=== PATIENT | female | born 1990 | race Caucasian/White ===

== ENCOUNTER → 2019-01-08 15:31 | Outpatient (CLI) | payer OTHER, MEDICAID, SELFPAY ==
[2019-01-08 16:13] LABS: Add Manual Diff / Slide Review NO; Basophils Absolute Auto 0 /uL (0-100); Basophils Percent Auto 0.4 % (0-2); Eosinophils Absolute Auto 300 /uL (0-450); Hematocrit 38.6 % (36-46); Hemoglobin 13.2 g/dL (12.0-16.0); Lymphocytes Absolute Auto 2100 /uL (1100-4500); Lymphocytes Percent Auto 26.3 % (25-40); Mean Corpuscular HGB Conc 34.3 % (30-36); Mean Corpuscular Volume 84.7 fL (80-100); Monocytes Absolute Auto 600 /uL (0-900); Monocytes Percent Auto 7.5 % (3-14); Neutrophils Absolute Auto 4800 /uL (1500-7000); Neutrophils Percent Auto 61.8 % (50-75); Platelet Count 228 X10^3/uL (150-400); Red Blood Cell Count 4.56 X10^6/uL (4.0-5.2); Red Cell Distribution Width 13.6 % (11.6-14.8); White Blood Cell Count 7.8 X10^3/uL (4.5-11.0)
[2019-01-08 16:16] LABS: Appearance Urine UA CLEAR; Bilirubin Urine UA NEGATIVE (NEGATIVE); Color Urine UA YELLOW; Glucose Urine UA NEGATIVE (Negative); Ketones Urine UA NEGATIVE (NEGATIVE); Leukocyte Esterase Urine UA NEGATIVE (NEGATIVE); Nitrite Urine UA NEGATIVE (Negative); Occult Blood Urine UA NEGATIVE (Negative); Protein Urine UA NEGATIVE (Negative); Urobilinogen Urine UA 0.2 E.U./dL (0.2); pH Urine UA 5.5 (4.5-8.0)
[2019-01-08 17:30] LABS: Hepatitis B Surface Antigen NEGATIVE s/c (NEGATIVE); Rubella Antibody IgG 3.9 IU/mL (>15)
[2019-01-08 18:04] LABS: HIV 1 & 2 Ab/Ag 4th Gen Combo NEGATIVE (NEGATIVE); Hep C Virus Ab w/Reflex Quant NEGATIVE s/c (NEGATIVE)
[2019-01-10 22:07] LABS: RPR Screen Nonreactive (Nonreactive)
== END ==
PROVIDERS: PCP Specialist; Visit Provider Specialist
DX: Z34.91 Encounter for supervision of normal pregnancy, unspecified, first trimester (principal)
CPT/HCPCS: 36415; 80055; 81003; 86787; 86803; 86850; 86900; 86901; 87086; 87389

== ENCOUNTER → 2019-02-21 14:49 | Outpatient (CLI) | payer OTHER, MEDICAID, SELFPAY ==
[2019-03-03 10:26] LABS: AFP, Serum 41.1 ng/mL; Calc Gestational Age 17.4; Cigarette Smoker NO; Collection Date 101819; Donated Egg NO; Donor Egg Age NOT GIVEN; Estriol, Free 1.05 ng/mL; Inhibin A, Dimeric 371 pg/mL; Maternal Ethnicity white; Maternal Weight 160 lbs; Number of Fetuses 1; Previous Pregnancy Down Syndro NO; hCG, MoM 1.13; hCG, Serum 28.3 IU/mL
== END ==
PROVIDERS: PCP Specialist; Visit Provider Specialist
DX: Z34.82 Encounter for supervision of other normal pregnancy, second trimester (principal); Z3A.17 17 weeks gestation of pregnancy
CPT/HCPCS: 36415; 82105; 82677; 84702; 86336

== ENCOUNTER → 2019-03-14 07:40 | Outpatient (CLI) | payer OTHER, MEDICAID, SELFPAY ==
--- NOTE | 2019-03-14 07:41 | DI.US.S_ITS ---
PROCEDURE: US OB >= 14 WEEKS FETUS INDICATIONS: 20 WEEK ANATOMY SCAN OUTSIDE/PRIOR DATING DATA: Last menstrual period (LMP): 10/25/18. LMP-based estimated date of delivery (MAGDA): 08/01/19. First dating scan (date and location): 01/20/19. Estimated date of delivery (MAGDA) from first dating scan: 07/29/19. TECHNIQUE: Real-time scanning was performed of the fetus, with image documentation and biometric measurements. Endovaginal scanning: No COMPARISON: [facility], , OB >= 14 WEEKS FETUS, 02/21/2019, 14:40. FINDINGS: General: A single living intrauterine gestation is present. Presentation: Variable. Placenta: Placental position is anterior, without previa. Amniotic fluid index: 10.0 cm, normal range is 5-24 cm. heart rate: 144 beats per minute. Maternal cervical canal: 4.1 cm long. Normal lower limit is 2.5 cm. biometrics: Biparietal diameter: 19 weeks Head circumference: 19 weeks 6 days Abdominal circumference: 19 weeks 5 days Femur length: 19 weeks 3 days Estimated gestational age from initial scan: 20 weeks 3 days Composite gestational age from present scan: 19 weeks 5 days Estimated weight and percentile: 302 g; 11 percentile Measurement variability for biometric dating: +/- 7 days from 14 weeks to 15 weeks 6 days gestation, +/- 10 days from 16 weeks to 21 weeks 6 days gestation, +/- 2 weeks from 22 weeks to 27 weeks 6 days gestation, +/- 3 weeks for 28 weeks gestation or later. weight reference: 4500 g or EFW >90/95% is considered macrosomia or large for gestational age. EFW <10% is small for gestational age. EFW 5% or less is considered intra-uterine growth restriction. Anatomic survey: Neuro: Ventricles are non-dilated at less than 10 mm. Cisterna magna is normal at 3-11 mm. Cerebellum is normal in size and morphology. Nuchal skin fold: Normal at less than 6 mm between 14-21 weeks gestational age. Face: Suboptimally visualized. Spine: No evidence for spina bifida. Heart: 4-chambered heart is present, with normal ventricular outflow tracts. Diaphragm: Diaphragm is intact. Stomach: Left-sided stomach is present. Kidneys: No hydronephrosis. Normal is less than 5 mm in 2nd trimester, less than 7 mm in 3rd trimester. Cord: Suboptimally visualized. Bladder: Normal in size. Extremities: All 4 extremities identified. IMPRESSION: 1. Single living IUP redemonstrated and interval growth is lower limits of normal. 2. face and cord insertion site not well-visualized; otherwise normal anatomy. Followup recommended. Dictated by: Ismael Ceja [facility] Interpreted: Geovani Patricia MD on 03/14/2019 at 10:23 Approved by: Geovani Patricia M.D. on 03/14/2019 at 12:40
== END ==
PROVIDERS: PCP Specialist; Visit Provider Specialist
DX: Z34.82 Encounter for supervision of other normal pregnancy, second trimester (principal); Z3A.19 19 weeks gestation of pregnancy
CPT/HCPCS: 76811

== ENCOUNTER → 2019-04-17 09:10 | Outpatient (CLI) | payer OTHER, SELFPAY ==
[2019-04-17 10:56] LABS: Hematocrit 35.2 % (36-46); Hemoglobin 12.1 g/dL (12.0-16.0)
[2019-04-17 11:29] LABS: GTT (PREG) 1 Hour PP 50gm Dose 115 mg/dL (76-139)
== END ==
PROVIDERS: PCP Specialist; Visit Provider Specialist
DX: Z34.82 Encounter for supervision of other normal pregnancy, second trimester (principal)
CPT/HCPCS: 36415; 82950; 85014; 85018

== ENCOUNTER → 2019-07-09 08:53 | Outpatient (CLI) | payer OTHER, SELFPAY ==
[2019-07-10 14:26] LABS: Strep Grp B PCR POS for Grp B Strep
== END ==
PROVIDERS: PCP Specialist; Visit Provider Specialist
DX: Z34.83 Encounter for supervision of other normal pregnancy, third trimester (principal); Z3A.37 37 weeks gestation of pregnancy
CPT/HCPCS: 87653

== ENCOUNTER 2019-07-31 08:27 | Outpatient (CLI) | payer OTHER, SELFPAY ==
--- NOTE | 2019-07-31 09:14 | PM.OBTRLD ---
Visit Information Visit Information Date of evaluation: 07/31/19 Primary OB Provider: Chasity Dodge Reason for Evaluation: Yes non-stress test non-stress test reason: other (Postdates) [facility] Medical History (Updated 07/31/19 @ 09:15 by Chasity Dodge MD) Family history of breast cancer in mother (Acute) Social History Smoking Status: Former smoker Evaluation Evaluation Baseline heart rate: 135 Variability: Moderate (11-25) monitor accelerations: Present monitor decelerations: Absent Contraction Frequency (minutes): 0 Category of Tracing: I Diagnosis, Plan/Disposition Final Diagnosis (1) Post-term , 40-42 weeks of gestation: Current Visit: Yes Status: Acute Plan/Disposition Plan: Reactive nonstress test. SHAINA in the office was 7 with good movement and tone. Consent form for induction sign to return 08/03 in the evening for Prostin followed by Pitocin induction OB Disposition: home
== END 2019-07-31 09:25 | disposition home or self-care (01) ==
LOC: LABOR 08:52 → OB 12:16
PROVIDERS: PCP Specialist; Referring Provider Specialist; Visit Provider Specialist
DX: O48.0 Post-term pregnancy (principal); Z3A.40 40 weeks gestation of pregnancy
CPT/HCPCS: 59025; G0378; G0379

== ENCOUNTER 2019-08-04 18:19 | Inpatient (IN) | payer OTHER, SELFPAY ==
[2019-08-04 18:38] VITALS: BP 109/71
[2019-08-04] MEDS: miSOPROStoL 25 MCG TABLET VAG ×2 (18:51→23:09)
[2019-08-04 21:20] LABS: Add Manual Diff / Slide Review NO; Basophils Absolute Auto 0 /uL (0-100); Basophils Percent Auto 0.4 % (0-2); Eosinophils Absolute Auto 300 /uL (0-450); Eosinophils Percent Auto 3.2 % (2-4); Hematocrit 32.8 % (36-46); Lymphocytes Absolute Auto 2700 /uL (1100-4500); Lymphocytes Percent Auto 28.7 % (25-40); Mean Corpuscular HGB Conc 33.4 % (30-36); Mean Corpuscular Hemoglobin 29.2 PG (26-34); Mean Corpuscular Volume 87.2 fL (80-100); Monocytes Absolute Auto 700 /uL (0-900); Monocytes Percent Auto 7.5 % (3-14); Neutrophils Absolute Auto 5700 /uL (1500-7000); Neutrophils Percent Auto 60.2 % (50-75); Platelet Count 248 X10^3/uL (150-400); Red Blood Cell Count 3.76 X10^6/uL (4.0-5.2); Red Cell Distribution Width 13.5 % (11.6-14.8); White Blood Cell Count 9.5 X10^3/uL (4.5-11.0)
[2019-08-05] MEDS: miSOPROStoL 25 MCG TABLET VAG (03:43)
[2019-08-05] MEDS: LACTATED RINGERS 1,000 ML 100 ML IV ×3 (08:42→17:56)
--- NOTE | 2019-08-05 08:43 | P.HPOB_ITS ---
OB HPI Date/Time Date of admission: 08/04/19 Date Patient Seen: 08/05/19 Time Patient Seen: 08:44 History of Present Condition Chief complaint: : 2 Para: 0 Estimated Date of Delivery: 07/29/19 Estimated Gestational Age (weeks): 41 Narrative: Alta Keen is a 29 year old female admitted for Induction for postdates History of Present care: good care, initiated at week # (12), number of visits (13) and pounds weight gain (38) Dating criteria: LMP confirmed by 1st trimester US Ultrasounds: normal mid trimester US Obstetrical complications: none Medical complications: none Preadmission Labs Blood type: O (+) positive -: Antibody screen: negative, GBS status: positive, HBsAG: negative, HIV: negative and RPR/VDLR: negative -: Rubella: not immune and Varicella: immune HCAB: negative Quad screen: Normal 1 hr GTT: 115 Evaluation Evaluation Baseline heart rate: 130 Variability: Moderate (11-25) monitor accelerations: Present monitor decelerations: Absent Uterine Contraction Intensity: Mild Category of Tracing: I Cervical dilation (cm): 1 Cervical effacement (%): 75 station: -1 Laboratory results: Laboratory Tests 08/04/19 08/04/19 20:50 20:50 WBC 9.5 RBC 3.76 L Hgb 11.0 L Hct 32.8 L MCV 87.2 MCH 29.2 MCHC 33.4 RDW 13.5 Plt Count 248 Neut % (Auto) 60.2 Lymph % (Auto) 28.7 [place] % (Auto) 7.5 Eos % (Auto) 3.2 Baso % (Auto) 0.4 Neut # (Auto) 5700 Lymph # (Auto) 2700 [place] # (Auto) 700 Eos # (Auto) 300 Baso # (Auto) 0 Blood Type O Positive Antibody Screen Negative [facility] Medical History (Updated 07/31/19 @ 09:15 by Chasity Dodge MD) Family history of breast cancer in mother (Acute) Social History Smoking Status: Former smoker Meds Home Medications and Allergies Home Medications Medication Instructions Recorded Confirmed Type prenat.vits,skip,bwc-rdoj-ikdkj 1 tab PO DAILY 01/08/19 08/04/19 History Double Electric breast Pump and #1 each 06/19/19 08/04/19 Rx Supplies Allergies Allergy/AdvReac Type Severity Reaction Status Date / Time acetaminophen [From Vicodin] Allergy Severe Anaphylaxis Verified 01/08/19 15:38 hydrocodone [From Vicodin] Allergy Severe Anaphylaxis Verified 01/08/19 15:38 Review of Systems Review of Systems Narrative: Patient denies headaches, scotomata, epigastric pain. Good movement. No leakage of fluid. ROS: Yes All systems reviewed with the patient and are negative except as otherwise documented Exam Vital Signs (past 8 hours): Blood pressure 94/51, pulse 75, temperature 37.2? Narrative Exam Narrative: HEENT exam within normal limits. Lungs are clear to auscultation and percussion. Heart is regular rate and rhythm no S3-S4 or murmurs. Abdomen is gravid. Fetus is vertex. Extremities without edema and nontender. Objective Labs Result Diagrams: 08/04/19 20:50 Labs: Laboratory Results - last 24 hr 08/04/19 08/04/19 20:50 20:50 WBC 9.5 RBC 3.76 L Hgb 11.0 L Hct 32.8 L MCV 87.2 MCH 29.2 MCHC 33.4 RDW 13.5 Plt Count 248 Neut % (Auto) 60.2 Lymph % (Auto) 28.7 [place] % (Auto) 7.5 Eos % (Auto) 3.2 Baso % (Auto) 0.4 Neut # (Auto) 5700 Lymph # (Auto) 2700 [place] # (Auto) 700 Eos # (Auto) 300 Baso # (Auto) 0 Blood Type O Positive Antibody Screen Negative Assessment and Plan Assessment and Plan Assessment and Plan narrative: 41 week gestation for induction. Patient received Cytotec x2. She is not maxim yet with knows significant cervical change. Howard bulb was placed through the cervix with the balloon inflated with 60 cc of saline. She will be given low-dose Pitocin with the Howard bulb.
[2019-08-05] MEDS: OXYTOCIN PREMIX 30 UNIT/500 ML PLAST..BAG IV (08:55)
[2019-08-05] MEDS: PENICILLIN G POTASSIUM 5,000,000 UNIT in DEXTROSE 5% IN WATER 250 ML IV (15:25)
[2019-08-05] MEDS: PENICILLIN G POTASSIUM 3,000,000 UNIT/50 ML FROZ.PIGGY 100 UNIT IV (19:14)
--- NOTE | 2019-08-05 23:08 | P.PCNOB_ITS ---
Labor & Delivery Delivery date: 08/05/19 Intrapartal events: Prolonged 2nd Stage > 2.5 hours Cervical ripening method: per misoprostal protocol (Followed by Howard bulb and Pitocin) Delivery monitor: external FHT and external uterine Route of delivery: vacuum extraction Indication for instrumentation: maternal exhaustion L&D Laceration Description: Vaginal - 1st Degree Delivery repair: chromic (3 0) Estimated blood loss (mL): 100 Anesthesia type: Epidural Narrative: Patient arrived on Labor and delivery for induction for postdates. She received prostaglandins followed by a Howard bulb and then Pitocin for induction. She was AROMed for clear fluid. She received epidural catheter for pain control. She progressed to complete dilation. She had episodes of early decelerations, category to tracing, otherwise category 1 tracing. The patient after 2-1/2 hours of pushing had such pain in her right hip that she could no longer push. Decision was made to assist with vacuum. The vacuum was placed and with a single contraction delivered the head. The vacuum was removed. There was a nuchal cord that was released. The infant delivered and was placed on maternal abdomen. After the cord stopped pulsating the cord was clamped, cut, and cord bloods obtained. The placenta delivered spontaneously, intact, with 3 vessels. There were low cervical or perineal tears. A first-degree midline vaginal tear on the posterior wall was repaired with 3 0 chromic suture in the usual 2 layer fashion. Both infant and mother doing well. [place] Baby 1: Infant gender: Female position: Right Occiput Anterior Placenta delivery description: Spontaneous cord vessel description: Nuchal Cord score (1 min): 8 score (5 min): 9 Plan for aftercare: Routine post vaginal delivery
[2019-08-05] MEDS: IBUPROFEN 600 MG TABLET PO (23:53)
[2019-08-06] MEDS: IBUPROFEN 600 MG TABLET PO ×3 (06:01→18:24)
[2019-08-06 06:05] LABS: Hematocrit 31.9 % (36-46); Hemoglobin 10.5 g/dL (12.0-16.0)
--- NOTE | 2019-08-06 13:03 | P.PNOB_ITS ---
Subjective - OB Subjective Patient comments: no complaints Protem baby status: nursing well feeding status: exclusively breast feeding Date Patient Seen: 08/06/19 Time Patient Seen: 11:00 Interval history: Patient is about 12 hours . She is fatigued and has discomfort in her perineal area but overall feels fine. No headaches, scotomata, epigastric pain. She is urinating okay now after some initial trouble emptying her bladder. She is tolerating a regular diet and ambulatory. Exam Vital Signs (past 8 hours): Blood pressure 105/66, pulse 74, temperature 98.2? Narrative Exam Narrative: Abdomen is soft, nontender. Uterus is firm, at U, nontender. Mild lochia. Extremities without edema and nontender. Objective Labs Result Diagrams: 08/06/19 05:55 Labs: Laboratory Results - last 24 hr 08/06/19 05:55 Hgb 10.5 L Hct 31.9 L Assessment & Plan Assessment and Plan (1) Status post vacuum-assisted vaginal delivery: Status: Acute Current Visit: Yes Plan day: 1 plan OB: routine care Time Spent With Patient Time: Total time spent is greater than 50% in coordination of care (as doc umented) at patient's floor/unit and/or counseling patient: Time with patient: less than 15 minutes
--- NOTE | 2019-08-07 03:39 | PM.OBDS.1 ---
Discharge Providers Provider Date of admission: 08/04/19 18:19 Discharge Date: 08/07/19 Primary care physician: Chasity Dodge MD Consults: 08/04/19 18:35 Consult to Anesthesiology Urgent Comment: Consulting Provider: Anesthesiologist Reason for consultation: Epidural Has provider been notified: No 08/06/19 23:06 Consult to Fish Hatchery Inspector Routine Comment: Discharge provider: Chasity Dodge MD Summary Hospital Course Date Patient Seen: 08/07/19 Time Patient Seen: 03:39 Hospital Course: Patient was admitted to the hospital for postdates induction. She received prostaglandins in vaginally followed by Howard bulb induction and Pitocin. Patient received an epidural catheter for pain control. She had maternal exhaustion with pushing and so had a vacuum assisted vaginal delivery. She had a first-degree vaginal tear that was repaired. She denies any headaches, scotomata, epigastric pain. She is urinating and ambulating well. She is breast-feeding without difficulty. Peripartum Data Delivery Method: Assisted Delivery (Vacuum assisted) Laceration description: Vaginal - 1st Degree Procedures: Prostin, Howard bulb, Pitocin induction. Epidural catheter. Vacuum assisted vaginal delivery complications: none [place] 1: Gender: Female Disposition of : home Discharge Diagnosis (1) Status post vacuum-assisted vaginal delivery: Status: Acute Status at Discharge Cognitive/behavioral status at discharge: oriented Functional status at discharge: independent ambulation Overall status at discharge: patient is progressing back to baseline Time Spent with Patient Time attestation: Total time spent providing and/or coordinating discharge services: Time spent: Less than 30 minutes Objective Labs Result Diagrams: 08/06/19 05:55 Labs: Laboratory Results - last 24 hr 08/06/19 05:55 Hgb 10.5 L Hct 31.9 L Exam Vital Signs (past 8 hours): Blood pressure 116/73, pulse 73, temperature 98.0? Narrative Exam Narrative: Abdomen is soft, nontender. Uterus is firm, at U, nontender. Mild lochia. Extremities without edema and nontender. Patient is Rh positive and received the Tdap in the 3rd trimester. She is rubella nonimmune so should get the rubella vaccine prior to discharge. Discharge Plan Discharge Plan Patient Disposition: Home Discharge orders & Medications Prescriptions: New ibuprofen 600 mg Tablet 600 mg PO Q6HR PRN (Reason: Pain, Mild (1-3)) Qty: 30 RF: 0 Continued (DME) Double Electric breast Pump and Supplies See Rx Instructions .ROUTE .MEDSUPPLY Qty: 1 RF: 0 prenat.vits,skip,vig-amcj-vozga tablet 1 tab PO DAILY RF: 0 Follow up/Referrals: Chasity Dodge MD [Primary Care Provider] - 1 Month Diet/Activity/Treatments Diet: Regular Activity: Nothing in vagina for 4 weeks Skin/Wound/Dressing Care Report to your healthcare provider any signs of infection, such as:: chills, fever and increased pain Discharge Data Primary Care Provider: Chasity Dodge
[2019-08-07 11:41] VITALS: BP 108/77; PULSE 72; RESP 18; TEMP 36.4
[2019-08-07] MEDS: MEASLES,MUMPS,RUBELLA VACC/PF 0.5 ML VIAL SUBCUT (12:44)
== END 2019-08-07 12:50 | disposition home or self-care (01) | DRG 807 ==
PROVIDERS: Admitting Provider Specialist; PCP Specialist; Referring Provider Specialist; Visit Provider Specialist
DX: O48.0 Post-term pregnancy (principal); O63.1 Prolonged second stage (of labor); O99.824 Streptococcus B carrier state complicating childbirth; O69.81X0 Labor and delivery complicated by cord around neck, without compression, not applicable or unspecified; Z37.0 Single live birth; Z3A.41 41 weeks gestation of pregnancy; O75.81 Maternal exhaustion complicating labor and delivery; O70.0 First degree perineal laceration during delivery
CPT/HCPCS: 01967; 36415; 59050; 59200; 59410; 85014; 85018; 85025; 86850; 86900; 86901; G0379; J2540; J2590

== ENCOUNTER 2019-08-17 11:49 | Observation (INO) | payer OTHER, SELFPAY ==
--- NOTE | 2019-08-17 12:00 | PC.NURSE ---
Pt presents to labor and delivery two weeks post per order with complaints of a headache, some nausea, and stiff neck for four days. Pt denies seeing spots, having blurred vision, increase in swelling, or right upper quadrant pain. Pt was negative for clonus and Carissa's sign. Pt's reflexes are 2+ in R arm. Pt has no weaknesses. Speech is normal. Gait is normal.
--- NOTE | 2019-08-17 12:05 | P.TNLD_ITS ---
Visit Information Visit Information Date of evaluation: 08/17/19 Primary OB Provider: Chasity Dodge Reason for Evaluation: Yes other Comments/Additional reasons for admission: Severe headache [facility] Medical History (Updated 08/17/19 @ 13:37 by Chasity Dodge MD) Family history of breast cancer in mother (Acute) Social History Smoking Status: Former smoker Review of Systems Review of Systems Narrative: Patient states for the last five days she has been having an increasing headache. It is now preventing her from doing her normal activities. She denies any scotomata. She has been sleeping better than she expected. She describes the pain as behind her eyes and and her whole head increasing from 6 to 7/10 pain. She has some mild queasiness but no nausea specifically. She has some neck stiffness. ROS: Yes All systems reviewed with the patient and are negative except as otherwise documented Exam Vital Signs (past 8 hours): Blood pressure 124/72, pulse of 52, temperature 96.6? Narrative Exam Narrative: HEENT exam within normal limits. Pupils are equal and reactive to light. Normal eye movements. Normal cranial nerves. Normal DTRs. No sw elling. Objective Labs Result Diagrams: 08/17/19 12:58 08/17/19 12:58 Diagnosis, Plan/Disposition Final Diagnosis (1) headache: Current Visit: Yes Status: Acute Plan/Disposition Plan: Patient with headache 13 days post delivery that started 5 days ago. No evidence for preeclampsia with labs or blood pressure. A normal temperature and white blood cell count. Headache did notimprove after IM toradol but did after IM demerol. She was discharged home. Call for worsening symptoms
[2019-08-17] MEDS: KETOROLAC 30 MG/ML VIAL 60 MG IM (12:25)
--- NOTE | 2019-08-17 12:25 | PC.NURSE ---
Toradol given per order in [facility].
--- NOTE | 2019-08-17 12:58 | PC.NURSE ---
Blood drawn by lab and urine sample taken per orders.
[2019-08-17 13:11] LABS: Appearance Urine UA CLEAR; Bilirubin Urine UA NEGATIVE (NEGATIVE); Color Urine UA YELLOW; Glucose Urine UA NEGATIVE (Negative); Ketones Urine UA NEGATIVE (NEGATIVE); Leukocyte Esterase Urine UA 1+ (NEGATIVE); Nitrite Urine UA NEGATIVE (Negative); Occult Blood Urine UA 3+ (Negative); Protein Urine UA NEGATIVE (Negative); Urobilinogen Urine UA 0.2 E.U./dL (0.2)
[2019-08-17 13:14] LABS: Add Manual Diff / Slide Review NO; Basophils Absolute Auto 100 /uL (0-100); Basophils Percent Auto 1.1 % (0-2); Eosinophils Absolute Auto 400 /uL (0-450); Eosinophils Percent Auto 4.7 % (2-4); Hematocrit 41.1 % (36-46); Hemoglobin 13.4 g/dL (12.0-16.0); Lymphocytes Absolute Auto 3100 /uL (1100-4500); Lymphocytes Percent Auto 39.7 % (25-40); Mean Corpuscular HGB Conc 32.5 % (30-36); Mean Corpuscular Hemoglobin 28.4 PG (26-34); Mean Corpuscular Volume 87.3 fL (80-100); Monocytes Absolute Auto 300 /uL (0-900); Monocytes Percent Auto 4.3 % (3-14); Neutrophils Absolute Auto 3900 /uL (1500-7000); Neutrophils Percent Auto 50.2 % (50-75); Platelet Count 294 X10^3/uL (150-400); Red Blood Cell Count 4.71 X10^6/uL (4.0-5.2); Red Cell Distribution Width 13.3 % (11.6-14.8); White Blood Cell Count 7.7 X10^3/uL (4.5-11.0)
[2019-08-17 13:21] LABS: Alanine Aminotransferase 22 IU/L (<35); Albumin 4.1 g/dL (3.5-5.0); Albumin Globulin Ratio 1.1 (1.0-2.8); Alkaline Phosphatase 111 U/L (38-126); Aspartate Aminotransferase 29 IU/L (14-36); BUN Creatinine Ratio 13.6 (6-22); Bilirubin Total 0.3 mg/dL (0.2-1.3); Bilirubin Unconjugated 0.3 mg/dL (0.0-1.1); Blood Urea Nitrogen 12 mg/dL (7-17); Calcium 9.4 mg/dL (8.4-10.2); Carbon Dioxide 25 mmol/L (22-32); Chloride 108 mmol/L (98-107); Estimated Glomerular Filt Rate > 60.0 mL/min (>60); Globulin 3.6 g/dL (1.7-4.1); Glucose 92 mg/dL (70-100); HEMOLYSIS < 15 (0-50); Potassium 4.3 mmol/L (3.4-5.1); Sodium 138 mmol/L (137-145); Total Protein 7.7 g/dL (6.3-8.2)
[2019-08-17 13:32] LABS: Bacteria Urine Few (2-10); RBC Urine 0-1/HPF (0-5/HPF); Squamous Epithelial Cell Urine 0-1 /HPF (0-5/HPF); WBC Urine 1-5/HPF (0-5/HPF); pH Urine UA 6.5 (4.5-8.0)
[2019-08-17 13:55] VITALS: BP 122/83; PULSE 56; RESP 16; TEMP 36.2
[2019-08-17] MEDS: MEPERIDINE 50 MG/ML INJ IM (13:57)
--- NOTE | 2019-08-17 13:57 | PC.NURSE ---
Pt given Demerol 50mg IM in R deltoid per order.
--- NOTE | 2019-08-17 15:00 | PC.NURSE ---
Pt states she feels much better now. Pt discharged home ambulatory with her mother.
== END 2019-08-17 15:00 | disposition home or self-care (01) ==
PROVIDERS: Admitting Provider Specialist; PCP Specialist; Referring Provider Specialist; Visit Provider Specialist
DX: O90.89 Other complications of the puerperium, not elsewhere classified (principal); R51 Headache
CPT/HCPCS: 36415; 80053; 80076; 81001; 85025; 96372; G0378; G0379; J1885; J2175